=== PATIENT | female | born 2000 | race African-American/Black ===

== ENCOUNTER 2025-05-03 08:31 | Outpatient (AMB) | payer OTHER, SELFPAY ==
--- NOTE | 2025-05-03 08:06 | MHC.PC.OV ---
Vital Signs 05/03/25 08:31 Height 5 ft 8 in Weight 156 lb 4 oz BMI 23.8 BP 110/70 Blood Pressure Location Lt brachial Position Sitting Respiration 16 Pulse 80 Pulse Source Palpation Temp 96.8 F Temp Source Temporal Artery Scan Intake Visit Reasons: New Patient / Annual, reestablish care and physical Medical Technologist Clinical Required: No Accompanied by: Self / Same As Patient Allergies No Known Allergies Allergy (Verified 05/03/25 08:32) Medication List - Last Reconciled 05/03/25 by Tessy Garcia MD cholecalciferol (vitamin D3) 1,250 mcg PO QWEEK penicillin V potassium 500 mg PO BID Tobacco use date assessed: 05/03/25 Dental Screening Dental Screen Date: 05/03/25 Did you have a dental visit in the last 12 months?: Yes Did you have a dental problem in the last 6 months where you did not have access to dental care?: No Was dental information given to patient?: Patient has dentist HPI HPI Comments History of Present Illness Details The patient is a 24-year-old female presenting to [facility] care and for physical. Recurrent Streptococcal Pharyngitis: The patient has a history of asplenia. She has had recurrent strep throat since February. Treatments have included a 10-day course of amoxicillin starting February 28, a 5-day course of azithromycin (Z-Erasmo) which was not effective, and she is now completing a course of penicillin. Despite treatment, she has had persistent symptoms including a barky cough, sore throat, and post-nasal drip. 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 She has a history of pneumonia last year and has an upcoming appointment with an diversified crops supervisor. Irritable Bowel Syndrome (IBS): The patient experienced an IBS flare-up from February 28 to April 08, which was triggered by a course of amoxicillin. During this flare-up, she had symptoms of regurgitation and watery stools, leading to a 15-pound weight loss from fasting. She required IV fluids for dehydration at [facility]. She has an upcoming gastroenterology appointment with Dr. Doyle at [facility] on May 08. Vaginitis: The patient developed vaginal itching last Wednesday. She was initially treated for a presumed yeast infection with oral fluconazole and topical Monistat without symptom resolution. She was seen by her BUMBOATER yesterday, who suspected bacterial vaginosis based on the clinical appearance and preemptively prescribed metronidazole gel while awaiting culture results. Anxiety: The patient reports experiencing some anxiety, particularly related to her IBS and recurrent illnesses. She occasionally sees a therapist but reports finding significant positive support from her voodoo. Review of Systems - Constitutional: per hpi - HEENT: Reports persistent sore throat and a barky cough since February. - Respiratory: Reports post-nasal drip and spitting up mucus. - Cardiovascular: Denies chest pain or other cardiac symptoms. - Gastrointestinal: Reports recent history of regurgitation and watery diarrhea. - Genitourinary: Reports vaginal itching for the past week. - Musculoskeletal: Denies swelling in her legs. - Psychiatric: Reports some anxiety related to her health issues. Physical Exam - HEENT: Ears show soft, non-obstructive cerumen bilaterally with no erythema of the canals. - Oropharynx: Left tonsillar pillar appears more inflamed than the right. - Neck: Supple, without lymphadenopathy. - Cardiovascular: Regular rate and rhythm with a soft, congenital murmur noted. - Lungs: Clear to auscultation bilaterally, no wheezing. - Abdomen: Bowel sounds are active. - Extremities: No peripheral edema. Assessment and Plan 1. Recurrent Streptococcal Pharyngitis - The patient's persistent symptoms despite multiple antibiotic courses warrant further investigation for potential incomplete treatment, resistant organism, underlying immunodeficiency, or constant re-exposure. - A referral will be made to ENT for further evaluation, including possible scoping. - The patient will also proceed with her scheduled immunology consult. - Today's plan includes ordering blood cultures, CBC, and CMP. - A trial of Claritin 10 mg daily for one week is recommended for possible allergic components. - The patient is advised to use a KN95 mask and an air purifier at work. 2. Irritable Bowel Syndrome (IBS) - The patient is recovering from a recent severe flare, which was triggered by amoxicillin and led to dehydration and weight loss. - She will follow up with her scheduled GI appointment with Dr. Doyle. 3. Vaginitis, suspected Bacterial Vaginosis - The patient has been empirically treated with metronidazole gel by her BUMBOATER pending culture results, after failing to respond to antifungal treatment. - The plan is to continue the 5-day course of metronidazole and await culture results. - She is advised to abstain from sexual intercourse until one week after treatment completion. 4. Health Maintenance - OBGYN - [facility] - Labs ordered today include an anemia profile, thyroid panel, vitamin D, and B12. - last TDAP in 2020, will discuss with diversified crops supervisor obtaining titers and boosting for other vaccines if indicated so will defer testing - A follow-up is scheduled in 4-6 months. 5. Cerumen Impaction - Mild, soft wax noted. - The patient is advised to use Debrox drops for removal. Discussion Notes I discussed with the patient my concern regarding her recurrent episodes of streptococcal pharyngitis, which have persisted since February despite multiple antibiotic courses. I explained that this could be due to several factors, including incomplete treatment, a resistant strain, constant re-exposure in her work environment, or a possible underlying immune issue. For this reason, I have placed a referral to an ENT specialist for a more thorough throat examination, and I supported her plan to see an diversified crops supervisor to investigate her immune function. We also discussed the possibility of an allergic component to her symptoms, and I recommended a trial of Claritin. Regarding her recent vaginal symptoms, we reviewed her BUMBOATER's assessment of likely bacterial vaginosis and the plan to continue metronidazole gel while awaiting culture results. I advised her to abstain from intercourse until at least one week after treatment is complete for full resolution. Patient Instructions - Please keep your upcoming appointments with Policy Change Clerks Supervisor) and the immune hog confinement system manager (Ui Developer Designer). - I have sent a referral for you to see an Ear, Nose, and Throat (ENT) doctor. - For your cough and nasal drip, you may try taking one tablet of Claritin 10 mg each day for one week to see if it helps. - To help prevent getting sick at work, consider wearing a higher-quality KN95 mask and using a small air purifier in your office. - For the mild wax in your ears, you can use [id number] Debrox ear drops. - Continue using the metronidazole gel as prescribed by your field support representative. [facility] Medical History (Updated 05/03/25 @ 12:40 by Tessy Garcia MD) Pharyngitis Irritable bowel syndrome (IBS) Vitamin D deficiency Anemia Anxiety Depression GERD (gastroesophageal reflux disease) Situs inversus Asplenia Surgical History (Updated 05/03/25 @ 08:07 by Tessy Garcia MD) Hx laparoscopic cholecystectomy Family History (Updated 05/03/25 @ 08:07 by Tessy Garcia MD) Maternal Grandmother Coronary artery disease Other Diabetes mellitus Primary hypertension Social History Housing: House Patient Tobacco Use Status: Never used Tobacco e-Cigarette/Vaping Use: Never Used service: No Current occupational status: employed 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 1. Little interest or pleasure in doing things: not at all 2. Feeling down, depressed, or hopeless: several days 3. Trouble falling or staying asleep, or sleeping too much: several days 4. Feeling tired or having little energy: not at all 5. Poor appetite or overeating: not at all 6. Feeling bad about yourself - or that you are a failure or have let yourself or your family down: not at all 7. Trouble concentrating on things, such as reading the newspaper or watching television: not at all 8. Moving or speaking so slowly that other people could have noticed. Or the opposite - being so fidgety or restless that you have been moving around a lot more than usual: not at all 9. Thoughts that you would be better off or of hurting yourself in some way: not at all Total score: 2 Depression Screening Interpretation: Negative Depression Screening Done: Yes 06583 - PHQ-9 Billing: Yes Source: Developed by Drs. Neftaly Mcgregor, Bianca Jamil, Vinicius Gong and colleagues, with an educational dalila from [employer]. Thrive Questionnaire Date Thrive assessed: 05/03/25 I am a: Patient What is your living situation today?: I have a steady place to live Within the past 12 months, did the food you bought not last and you didn't have the money to get more?: Never true Within the past 12 months, did you worry whether your food would run out before you got money to buy more?: Never true Do you have trouble paying for medicines?: No Do you have trouble getting transportation to medical appointments?: No Do you have trouble paying your heating and electricity bill?: No Do you have trouble taking care of your child, family member or friend?: No Do you have trouble with day-to-day activities such as bathing, preparing meals, shopping, managing finances, etc.?: No Are you currently unemployed and looking for a job?: No Are you interested in more education?: Yes THRIVE Score: 0 AUDIT C Alcohol Use Questionnaire (AUDIT-C) 1. How often do you have a drink containing alcohol?: Never 3. How often do you have six or more drinks on one occasion?: Never Total Score: 0 IAN-7 AMB Questionnaire IAN-7 Date IAN - 7 assessed: 05/03/25 Feeling nervous, anxious, or on edge: 1 = Several days Not being able to stop or control worryin = Not at all Worrying too much about different things: 2 = More than half the days Trouble relaxin = More than half the days Being so restless that it is hard to sit still: 1 = Several days Becoming easily annoyed or irritable: 0 = Not at all Feeling afraid as if something awful might happen: 0 = Not at all Total IAN-7 score (0-4 normal; 5-9 mild; 10-14 moderate; 15-21 severe): 6 Source: Developed by Drs. Neftaly Mcgregor, Bianca Jamil, Vinicius Gong and colleagues, with an educational dalila from [employer]. Physical exam (Primary Care) Vital Signs: Last Vital Signs Temp 96.8 F 05/03/25 08:31 Pulse 80 05/03/25 08:31 Resp 16 05/03/25 08:31 BP 110/70 05/03/25 08:31 BMI result Body Mass Index 23.8 Tobacco/Smoking Status: Tobacco use Status Tobacco use date assessed 05/03/25 05/03/25 08:06 Patient Tobacco Use Status Never used Tobacco 05/03/25 08:37 e-Cigarette/Vaping Use Never Used 05/03/25 08:37 PHQ-9: PHQ-9 Score PHQ-9: Total score 2 05/03/25 09:37 Depression Screening Interpretation: Negative Thrive Assessment: Date of Thrive Assessment Date Thrive assessed 05/03/25 05/03/25 09:37 Coding Level of Care Code Est Pt Prev Care 18-39y(14395) Diagnoses Asplenia Q89.01 Vitamin D deficiency E55.9 Pharyngitis due to Streptococcus species J02.0 Pharyngitis/tonsillitis etiology: streptococcus Additional Codes PHQ-9 - 63865 - PHQ-9 Billing: Yes ([id number]) Assessment & Plan Assessment & Plan (1) Asplenia: Code(s): Q89.01 - Asplenia (congenital) Category: Medical (2) Vitamin D deficiency: Code(s): E55.9 - Vitamin D deficiency, unspecified Category: Medical (3) Pharyngitis: Code(s): J02.9 - Acute pharyngitis, unspecified Category: Medical Qualifiers: Pharyngitis/tonsillitis etiology: streptococcus Qualified Code(s): J02.0 - Streptococcal pharyngitis Plan - Place referral to ENT for evaluation of recurrent pharyngitis. - Patient to proceed with scheduled appointments with Gastroenterology (Dr. Doyle) and Immunology. - Order labs today: CBC, CMP, blood cultures, anemia profile (iron), thyroid panel, vitamin D, and vitamin B12. - Recommend a one-week trial of Claritin 10 mg daily for post-nasal drip symptoms. - Patient to continue metronidazole gel for vaginitis and is advised to abstain from intercourse until one week after treatment is finished. - Recommend using a higher-quality mask (KN95) and an air purifier at work to reduce exposure to pathogens. - Recommend Debrox ear drops for mild cerumen. Orders: Orders Vitamin D 25-OH Total Today D64.9 - Anemia, unspecified, E55.9 - Vitamin D deficiency, unspecified, K21.9 - Gastro-esophageal reflux disease without esophagitis, K58.9 - Irritable bowel syndrome, unspecified, Q89.01 - Asplenia (congenital) Comprehensive Met. Panel Today D64.9 - Anemia, unspecified, E55.9 - Vitamin D deficiency, unspecified, K21.9 - Gastro-esophageal reflux disease without esophagitis, K58.9 - Irritable bowel syndrome, unspecified, Q89.01 - Asplenia (congenital) IRON PROFILE Today D64.9 - Anemia, unspecified, E55.9 - Vitamin D deficiency, unspecified, K21.9 - Gastro-esophageal reflux disease without esophagitis, K58.9 - Irritable bowel syndrome, unspecified, Q89.01 - Asplenia (congenital) Blood Culture X2 Today J02.9 - Acute pharyngitis, unspecified, Q89.01 - Asplenia (congenital) Vitamin B12 Today D64.9 - Anemia, unspecified, E55.9 - Vitamin D deficiency, unspecified, K21.9 - Gastro-esophageal reflux disease without esophagitis, K58.9 - Irritable bowel syndrome, unspecified, Q89.01 - Asplenia (congenital) Complete Blood Count Auto Diff Today D64.9 - Anemia, unspecified, E55.9 - Vitamin D deficiency, unspecified, K21.9 - Gastro-esophageal reflux disease without esophagitis, K58.9 - Irritable bowel syndrome, unspecified, Q89.01 - Asplenia (congenital) Ferritin Today D64.9 - Anemia, unspecified, E55.9 - Vitamin D deficiency, unspecified, K21.9 - Gastro-esophageal reflux disease without esophagitis, K58.9 - Irritable bowel syndrome, unspecified, Q89.01 - Asplenia (congenital) Folate Today D64.9 - Anemia, unspecified, E55.9 - Vitamin D deficiency, unspecified, K21.9 - Gastro-esophageal reflux disease without esophagitis, K58.9 - Irritable bowel syndrome, unspecified, Q89.01 - Asplenia (congenital) TSH reflex Free T4 Today D64.9 - Anemia, unspecified, E55.9 - Vitamin D deficiency, unspecified, K21.9 - Gastro-esophageal reflux disease without esophagitis, K58.9 - Irritable bowel syndrome, unspecified, Q89.01 - Asplenia (congenital) Referrals Ear/Nose/Throat Referral J02.9 - Acute pharyngitis, unspecified Medications: New loratadine (Claritin) 10 mg PO DAILY PRN 14 tabs 0RF allergy symptoms
[2025-05-03 08:31] VITALS: BP 110/70; PULSE 80; RESP 16; TEMP 36; BMI 23.8
--- OUTSIDE RECORDS SUMMARY | 2025-05-03 08:51 | XMS_ITS | Clinical Summary ---
Author Organization [address] [place] [address] Address [address] [place] [address] Phone Care Team Providers Care Stereotype Caster Name Role Phone Merry Murillo MD Primary Care Provider Allergies No known active allergies Medications albuterol HFA (PROAIR HFA ; PROVENTIL HFA ; VENTOLIN HFA) 90 mcg/actuation inhaler Inhale 2 puffs by mouth every 6 hours as needed. 4 Active fluticasone propionate (FLONASE) 50 mcg/actuation nasal spray Administer 1 spray into each nostril 2 (two) times a day. 5 Active omeprazole (PriLOSEC) [address] capsule Take 1 capsule (40 mg total) by mouth 1 (one) time each day before breakfast. 4 Active magnesium oxide (MAG-OX) 400 mg magnesium tablet Take 1 tablet (400 mg total) by mouth 1 (one) time each day. Active cholecalciferol (VITAMIN D-3) 1,250 mcg (50,000 unit) capsule Take 1 capsule (50,000 Units total) by mouth 1 (one) time per week. Active psyllium (METAMUCIL) powder Take 1 packet by mouth 2 (two) times a day. Active MULTIVITAMIN ORAL Take 1 tablet by mouth 1 (one) time each day. Active Social History Tobacco Use Types Packs/Day Years Used Date Smoking Tobacco: Never Assessed Comments Unknown Sex and Gender Information Value Date Recorded Sex Assigned at Not on file Legal Sex Female 7:39 PM EST Gender Identity Not on file Sexual Orientation Not on file Plan of Treatment Upcoming Encounters Date Type Department Care Team ([facility] st Contact Info) Description 05/08/2025 1:20 PM EST Consult Gastroenterology - [address] [facility] [address] [facility] [address] [place] [id number] Goldy Doyle MD [address] [facility] [address] [place] [address] Health Maintenance Due Date Last Done Comments Cervical Cancer Screening: Pap Smear 2019 Depression Screening 06/21/2024 COVID-19 Vaccine ( season) 2025 07/16/2021, 10/08/2020, 09/10/2020 Influenza Vaccine (#1) 2025 , 05/12/2021, 03/29/2020, Additional history exists HIV Screening 04/13/2025 Hepatitis C Screening 04/13/2025 Social Influencers of Health Screening 04/13/2025 DTaP,Tdap,and Td Vaccines (8 - Td or Tdap) 02/07/2032 02/06/2022, 11/20/2009, 09/14/2003, Additional history exists RSV Immunization Adult Patients (1 - 1-dose 75+ series) 2073 Hepatitis B Vaccines Completed 05/05/1999, 1998, 1998 HIB Vaccines Completed 01/02/2000, 04/21, 02/04/1999, Additional history exists IPV Vaccines Completed 09/14/2003, 02/20, 02/04/1999, Additional history exists MMR Vaccines Completed 09/14/2003, 01/02/2000 Meningococcal ACWY Vaccine Aged Out 11/20/2009 N o longer eligible based on patient's age to complete this topic Varicella Vaccines Completed 11/20/2009, 01/02/2000 HPV Vaccines Completed 10/30/2016, 04/21, 02/14/2016 Pneumococcal Vaccine: Pediatrics (0 to 5 Years) and At-Risk Patients (6 to 49 Years) Aged Out 02/06/2022, 12/21/2017, 02/14/2016, Additional history exists No longer eligible based on patient's age to complete this topic Hepatitis A Vaccines Aged Out No long er eligible based on patient's age to complete this topic Meningococcal B Vaccine Aged Out No l onger eligible based on patient's age to complete this topic RSV Immunization Patients Under 20 months Aged Out No longer eligible based on patient's age to complete this topic Insurance [facility] Care Teams Stereotype Caster Relationship Specialty Start Date End Date Merry Murillo MD [id number] [place] [address] PCP - General Internal Medicine 04/13/25
--- OUTSIDE RECORDS SUMMARY | 2025-05-03 08:51 | XMS_ITS | Clinical Summary ---
Author Organization [facility] Address [address] [place] [address] Care Team Providers Care Human Service Coordinator Name Role Phone Tessy Garcia MD Primary Care Provider [phone] Allergies No known active allergies Medications Lo Loestrin Fe 1 MG-10 MCG / 10 MCG tablet Take 1 tablet by mouth. 11/07/2023 Active OMEprazole (PriLOSEC) 40 MG capsuleIndicati ons:Generalized abdominal pain,Bloating Take 1 capsule (40 mg total) by mouth every morning before breakfast. 90 capsule 3 02/14/2024 Active albuterol (PROVENTIL HFA; VENTOLIN HFA) 108 (90 Base) MCG/ACT inhaler Inhale 2 puffs 4 times daily (every 6 hours) as needed. For Wheezing. 03/17/2024 Active azithromycin (ZITHROMAX) 250 MG tablet TAKE 2 TABLETS BY MOUTH TODAY, THEN TAKE 1 TABLET DAILY FOR 4 DAYS DIRECTED 05/05/2024 Active benzonatate (TESSALON) 100 MG capsule Take 200 mg by mouth. 05/05/2024 Active dicyclomine (BENTYL) 10 MG capsuleIndicati ons:Generalized abdominal pain TAKE 1 CAPSULE (10 MG TOTAL) BY MOUTH 3 TIMES A DAY NEEDED FOR CRAMPING 270 capsule 1 08/14/2024 Active Active Problems No known active problems Social History Tobacco Use Types Packs/Day Years Used Date Smoking Tobacco: Never Smokeless Tobacco: Never Alcohol Use Standard Drinks/Week Comments Not Currently 0 (1 standard drink = 0.6 oz pure alcohol) Rarely not weekly nor monthly Comments Unknown Sex and Gender Information Value Date Recorded Sex Assigned at Female 01/26/2024 7:02 AM EDT Legal Sex Female 2:18 PM EDT Gender Identity Female 01/26/2024 7:02 AM EDT Sexual Orientation Heterosexual (straight) 01/25 7:02 AM EDT Last Filed Vital Signs Vital Sign Reading Time Taken Comments Blood Pressure 115/75 05/16/2024 3:23 PM EST Pulse 73 05/16/2024 3:23 PM EST Temperature - - Respiratory Rate - - Oxygen Saturation - - Inhaled Oxygen Concentration - - Weight 76.7 kg (169 lb) 05/16/2024 3:23 PM EST Height 170.2 cm (5' 7 ) 05/16/2024 3:23 PM EST Body Mass Index 26.47 05/16/2024 3:23 PM EST Plan of Treatment Health Maintenance Due Date Last Done Comments Hepatitis C Virus Screening 1998 HIV Screening 2011 HPV Vaccines (1 - 3-dose series) 2013 DTaP/Tdap/Td Vaccines (1 - Tdap) 2017 Hepatitis B Vaccines (1 of 3 - 19+ 3-dose series) 2017 Pap Smear (Ages 21-65) 2019 Influenza Vaccine 01/19/2025 05/12/2021, , 03/29/2020, Additional history exists COVID-19 Vaccine ( season) 2025 07/16/2021, 10/08/2020, 09/10/2020 Pneumococcal Vaccine: Pediatric (0-5 Years) and At-Risk Patients (6 to 49 Years) Aged Out No longer eligible based on patient's age to complete this topic Insurance Care Teams Human Service Coordinator Relationship Specialty Start Date End Date Tessy Garcia MD [address] [place] [address] PCP - General Internal Medicine 01/18/24
== END 2025-05-03 09:28 | disposition home or self-care (01) ==
LOC: HO.HMCHD 08:31
PROVIDERS: PCP Internal Medicine; Visit Provider Internal Medicine
DX: Z00.00 Encounter for general adult medical examination without abnormal findings (principal); Q89.01 Asplenia (congenital); E55.9 Vitamin D deficiency, unspecified; J02.0 Streptococcal pharyngitis

== ENCOUNTER 2025-05-03 08:31 | Outpatient (REF) | payer OTHER, SELFPAY ==
[2025-05-03 09:58] LABS: MANUAL DIFF FLAG NO
[2025-05-03 10:51] LABS: Hematocrit 35.4 % (37.0-47.0); Hemoglobin 11.5 g/dl (12.0-16.0); Imm Gran Abs Auto 0.01 X10*3/uL (0.00-0.03); Imm Gran Pct Auto 0.2 % (0.0-0.4); Lymphocytes Absolute Auto 1.4 X10*3/uL (1.2-4.9); Mean Corpuscular HGB Conc 32.5 g/dl (31.0-35.0); Mean Corpuscular Hemoglobin 29.4 pg (27.0-33.0); Mean Corpuscular Volume 90.5 fL (80.0-98.0); NRBC Abs Auto 0.000 X10*3/uL (0.0-0.012); NRBC Pct Auto 0.0 /100WBC (0.0-0.2); Platelet Count 268 X10*3/uL (160-400); Red Blood Count 3.91 X10*6/uL (4.20-5.50); White Blood Count 4.3 X10*3/uL (4.8-10.8)
[2025-05-03 11:47] LABS: Alanine Aminotransferase 11 U/L (0-31); Albumin Level 4.5 g/dL (3.5-5.0); Alkaline Phosphatase 77 U/L (39-117); Anion Gap 10 (12-20); Aspartate Amino Transferase 15 U/L (5-31); Blood Urea Nitrogen 10 mg/dL (9-16); Calcium 9.6 mg/dL (8.4-10.2); Carbon Dioxide 24 mmol/L (22-29); Chloride 107 mmol/L (96-108); Estimated Glomerular Filt Rate > 60; Iron 54 mcg/dL (30-160); Percent Iron Saturation 18 % (15-50); Potassium 4.0 mmol/L (3.3-5.1); Sodium 137 mmol/L (135-145); Total Iron Binding Capacity 297 mcg/dL (228-428); Total Protein 7.5 g/dL (6.5-8.0); Unsaturated Iron Binding 243 ug/dL
[2025-05-03 12:05] LABS: Ferritin 14 ng/mL (10-122)
[2025-05-03 12:10] LABS: Folate 7.7 ng/mL (> or = 4.0); Vitamin B12 798 pg/mL (200-900)
== END 2025-05-03 08:32 | disposition home or self-care (01) ==
LOC: HO.LAB 08:31
PROVIDERS: PCP Internal Medicine; Visit Provider Internal Medicine
DX: J02.0 Streptococcal pharyngitis (principal); D64.9 Anemia, unspecified; K21.9 Gastro-esophageal reflux disease without esophagitis; E55.9 Vitamin D deficiency, unspecified; Q89.01 Asplenia (congenital); K58.9 Irritable bowel syndrome, unspecified; N76.0 Acute vaginitis; F41.9 Anxiety disorder, unspecified; H61.20 Impacted cerumen, unspecified ear
CPT/HCPCS: 36415; 80053; 82306; 82607; 82728; 82746; 83540; 84443; 85025; 87040; 96127